=== PATIENT | female | born 1965 | race Caucasian/White ===

== ENCOUNTER 2020-06-08 19:42 | Emergency (ER) | payer BC, OTHER ==
[2020-06-08] MEDS ORDERED: NA CHLORIDE 0.9% 1,000 ML ONE ×2 (20:11→21:46)
[2020-06-08 20:56] LABS: Absolute Lymphocytes (CBC) 2.5 K/uL (0.7-4.9); Basophils % 0.8 % (0-1.3); Lymphocytes % 40.2 % (15.3-44.8); MPV 7.5 fL (7.6-11.3); RBC Red Blood Cell Count 3.89 M/uL (3.86-4.86)
[2020-06-08 21:11] LABS: Protime INR 0.87
[2020-06-08 21:12] LABS: ALT/SGPT 35 U/L (12-78); AST/SGOT 16 U/L (15-37); Albumin 4.6 g/dL (3.4-5.0); Alkaline Phosphatase 65 U/L (45-117); BUN Blood Urea Nitrogen 33 mg/dL (7-18); Bicarbonate 25 mmol/L (21-32); Bilirubin Direct 0.1 mg/dL (0-0.2); Bilirubin Total 0.5 mg/dL (0.2-1.0); Glucose Level 99 mg/dL (74-106); Potassium 3.7 mmol/L (3.5-5.1); Protein, Total 8.5 g/dL (6.4-8.2); Sodium Level 139 mmol/L (136-145)
[2020-06-08] MEDS ORDERED: THIAMINE 200 MG/2 ML INJ ONE (21:45)
[2020-06-08] MEDS ORDERED: MULTIVITAMINS 10 ML VIAL (INJ) IV ONE (21:46)
[2020-06-08] MEDS ORDERED: FOLIC ACID 5 MG/ML VIAL ONE (21:47)
--- NOTE | 2020-06-09 02:07 | ER ---
Nurse's Notes [facility] Name: Angelica Duarte Age: 55 yrs Sex: Female : 1965 Arrival Date: 06/08/2020 Time: 19:42 Bed 4 Private MD: Diagnosis: Alcohol abuse with intoxication, unspecified Presentation: 06/08 19:50 Chief complaint: Patient states: Drank a bottle of wine, mixed drink. Got in a argument ll1 with , went into room at 1915 ate took about 15 zolpidem, told her she wanted to . Coronavirus screen: Client denies travel out of the [place] in the last 14 days. At this time, the client does not indicate any symptoms associated with coronavirus-19. Ebola Screen: Patient denies travel to an Ebola-affected area in the 21 days before illness onset. Initial Sepsis Screen: Does the patient meet any 2 criteria? HR > 90 bpm. Risk Assessment: Do you want to hurt yourself or someone else? Patient reports desire/thoughts of hurting themselves or someone else. Provider notified. Onset of symptoms was June 08, 2020. 19:50 Method Of Arrival: Wheelchair ll1 19:50 Acuity: SCOTT 2 ll1 Historical: - Allergies: 19:53 general anesthia; ll1 - PMHx: 19:53 Hypertension; ll1 - PSHx: 19:53 Knee surgery; ll1 - Immunization history:: Adult Immunizations up to date. - Social history:: Smoking status: Patient denies any tobacco usage or history of. Patient uses alcohol, Patient/guardian denies using street drugs. Screenin:00 Abuse screen: Denies threats or abuse. Nutritional screening: No deficits noted. jb4 Tuberculosis screening: No symptoms or risk factors identified. Fall Risk None identified. Assessment: 20:00 General: Appears in no apparent distress. uncomfortable, Behavior is calm, cooperative, jb4 appropriate for age. Pain: Denies pain. Neuro: Level of Consciousness is awake, obeys commands, lethargic, Oriented to person, place, time, situation. Cardiovascular: Patient's skin is warm and dry. Respiratory: Airway is patent Respiratory effort is even, unlabored, Respiratory pattern is regular, symmetrical. GI: No signs and/or symptoms were reported involving the gastrointestinal system. : No signs and/or symptoms were reported regarding the genitourinary system. EENT: No signs and/or symptoms were reported regarding the EENT system. Derm: Skin is intact, Skin is pink, warm \T\ dry. Musculoskeletal: Circulation, motion, and sensation intact. Range of motion: intact in all extremities. 21:00 Reassessment: Patient and/or family updated on plan of care and expected duration. Pain jb4 level reassessed. Snoring respirations noted. Pt desat's to 84% on room air. Provider notified. PT placed on 2l NC per protocol. 21:12 Reassessment: spoke to Poison Control in [place] recommended care is symptomatic and bb supportive, with Ambien the concern is drowsiness compounded by alcohol ingestion monitor patient for airway control. Charcoal is contraindicated at this time due to the length of time since ingestion and the risk for aspiration. Give IV fluids and check the usual lab values. 22:00 Reassessment: Patient and/or family updated on plan of care and expected duration. Pain jb4 level reassessed. Pt no longer snoring, O2 increased to 98% on 2L NC. respirations are even and unlabored. Pt can be aroused with sternal rub. Remains Oriented x4 and lethargic. 23:00 Reassessment: Patient and/or family updated on plan of care and expected duration. Pain jb4 level reassessed. Pt remains lethargic. Is able to be aroused via sternal rub. Remains Oriented x4. remains at the bedside. 06/09 00:00 Reassessment: No changes from previously documented assessment. Patient and/or family jb4 updated on plan of care and expected duration. Pain level reassessed. Patient is alert, oriented x 3, equal unlabored respirations, skin warm/dry/pink. 01:00 Reassessment: Patient and/or family updated on plan of care and expected duration. Pain jb4 level reassessed. Pt is more easily aroused by verbal stimuli. Opens her eyes on command. Respirations are even and unlabored. No s/s of pain or distress noted. 02:30 Reassessment: Patient and/or family updated on plan of care and expected duration. Pain jb4 level reassessed. Patient is alert, oriented x 3, equal unlabored respirations, skin warm/dry/pink. Pt is now sitting up in bed A\T\O x4. No s/s of pain or distress noted. Pt reports feeling better. informed of d/c orders and need for to arrive to give ride home. 02:42 Reassessment: Pt's notified of D/c orders and need to come and pick her up. jb4 03:23 Reassessment: Patient and/or family updated on plan of care and expected duration. Pain jb4 level reassessed. Patient is alert, oriented x 3, equal unlabored respirations, skin warm/dry/pink. Pt and verbalized understanding of d/c and follow up instructions. Pt assisted to vehicle via wheelchair. Vital Signs: 06/08 19:50 BP 96 / 66; Pulse 106; Resp 18; Temp 97.8; Pulse Ox 96% ; Pain 0/10; ll1 21:00 BP 98 / 49; Pulse 84; Resp 18; Pulse Ox 97% on R/A; oe 22:00 BP 103 / 70; Pulse 85; Resp 18; Pulse Ox 100% on R/A; oe 23:00 BP 99 / 63; Pulse 89; Resp 18; Pulse Ox 99% on R/A; oe 06/09 00:00 BP 112 / 55; Pulse 96; Resp 17; Pulse Ox 98% on R/A; oe 01:00 BP 104 / 68; Pulse 91; Resp 18; Pulse Ox 100% on R/A; oe 02:00 BP 113 / 77; Pulse 95; Resp 16; Pulse Ox 100% on R/A; jb4 03:00 BP 121 / 98; Pulse 106; Resp 16; Pulse Ox 97% on R/A; jb4 ED Course: 06/08 19:42 Patient arrived in ED. cl3 19:52 Triage completed. ll1 19:53 Arm band placed on Patient notified of wait time. ll1 19:56 Miguelina Forman [facility]C [facility] kb 19:56 David Kolb MD is Attending Physician. kb 20:00 Lew Albarran, RN is Primary Nurse. jb4 20:00 Patient has correct armband on for positive identification. Bed in low position. Call jb4 light in reach. Side rails up X 1. Pulse ox on. NIBP on. 06/09 03:30 No provider procedures requiring assistance completed. IV discontinued, intact, jb4 bleeding controlled, No redness/swelling at site. Pressure dressing applied. Administered Medications: 06/08 20:20 Drug: NS 0.9% 1000 ml Route: IV; Rate: 1000 ml; Site: right wrist; jb4 21:47 Drug: Banana Bag - (NS 0.9% 1000 ml, foLIC Acid 1 mg, Thiamine 100 mg, Multivitamin 1 jb4 amp) Route: IV; Rate: calculated rate; Site: right wrist; Outcome: 06/09 02:06 Discharge ordered by MD. durand 03:30 Discharged to home via wheelchair, with family. jb4 03:30 Condition: stable 03:30 Discharge instructions given to patient, family, Instructed on discharge instructions, follow up and referral plans. Demonstrated understanding of instructions, follow-up care. 03:33 Patient left the ED. jb4 Signatures: Miguelina Forman, FENCE SETTER-C FENCE SETTER-CkRakel Rodarte RN RN bb Lew Albarran RN RN jb4 Chung Lovelace Charde cl3 Cara Will RN RN ll1 Corrections: (The following items were deleted from the chart) 03:28 02:42 Reassessment: Pt's notified of D/c orders and need to come and pick her jb4 up. jb4
--- NOTE | 2020-06-09 02:07 | EDPHYS ---
Physician Documentation [facility] Name: Angelica Duarte Age: 55 yrs Sex: Female : 1965 Arrival Date: 06/08/2020 Time: 19:42 Bed 4 Private MD: ED Physician David Kolb HPI: 06/08 21:10 This 55 yrs old Female presents to ER via Wheelchair with complaints of kb Possible Overdose. 21:10 The patient presents to the emergency department after a known overdose, that was kb intentional. Context: Method: the patient has a confirmed or suspected ingestion, ambien, Time: at 19:00, Extent: the strength of the pills/capsules is 12.5 mg(s), the patient had a total ingestion of approximately 187.5 mg(s), the OD/poisoning occurred at at home, and was witnessed no one, Psychiatric history: none, Previous OD/poisoning history: none. Associated signs and symptoms: The patient has no apparent associated signs or symptoms. Severity of symptoms: At their worst the symptoms were moderate in the emergency department the symptoms are unchanged. The patient has not experienced similar symptoms in the past. The patient has not recently seen a physician. Pt states "I'm fine and can go home." at bedside explains that pt drank a bottle of wine, 3oz of rum and then went into the bedroom and took 15-16 of her 12.5mg ambien. States she told him she wanted to kill herself. Pt reports she was not trying to harm herself, that she was mad at her and wanted to get some sleep. Pt reports she has been taking ambien for many years. Pt appears intoxicated. Resp even and unlabored. Pt is awake, alert and oriented. Pt denies homicidal or suicidal ideations. . Historical: - Allergies: 19:53 general anesthia; ll1 - PMHx: 19:53 Hypertension; ll1 - PSHx: 19:53 Knee surgery; ll1 - Immunization history:: Adult Immunizations up to date. - Social history:: Smoking status: Patient denies any tobacco usage or history of. Patient uses alcohol, Patient/guardian denies using street drugs. ROS: 21:14 Constitutional: Negative for fever, chills, and weight loss, Cardiovascular: Negative kb for chest pain, palpitations, and edema, Respiratory: Negative for shortness of breath, cough, wheezing, and pleuritic chest pain, Abdomen/GI: Negative for abdominal pain, nausea, vomiting, diarrhea, and constipation, Back: Negative for injury and pain, : Negative for injury, bleeding, discharge, and swelling, MS/Extremity: Negative for injury and deformity, Skin: Negative for injury, rash, and discoloration, Neuro: Negative for headache, weakness, numbness, tingling, and seizure. 21:14 Psych: Positive for overdose of ambien, intoxication. Exam: 21:14 Constitutional: This is a well developed, well nourished patient who is awake, alert, kb and in no acute distress. Head/Face: Normocephalic, atraumatic. Chest/axilla: Normal chest wall appearance and motion. Nontender with no deformity. No lesions are appreciated. Cardiovascular: Regular rate and rhythm with a normal S1 and S2. No gallops, murmurs, or rubs. Normal PMI, no JVD. No pulse deficits. Respiratory: Lungs have equal breath sounds bilaterally, clear to auscultation and percussion. No rales, rhonchi or wheezes noted. No increased work of breathing, no retractions or nasal flaring. Abdomen/GI: Soft, non-tender, with normal bowel sounds. No distension or tympany. No guarding or rebound. No evidence of tenderness throughout. Skin: Warm, dry with normal turgor. Normal color with no rashes, no lesions, and no evidence of cellulitis. MS/ Extremity: Pulses equal, no cyanosis. Neurovascular intact. Full, normal range of motion. Neuro: Awake and alert, GCS 15, oriented to person, place, time, and situation. Cranial nerves II-XII grossly intact. Motor strength 5/5 in all extremities. Sensory grossly intact. Cerebellar exam normal. Normal gait. 21:14 Neuro: pt appears intoxicated. 21:14 Psych: Behavior/mood is cooperative, intoxicated. Affect is calm, Oriented to person, place, time, Patient has no thoughts/intents to harm self or others. Judgement / Insight is normal. Memory is normal. Delusions/hallucinations are not present. pt denies homicidal and suicidal ideations to me. Vital Signs: 19:50 BP 96 / 66; Pulse 106; Resp 18; Temp 97.8; Pulse Ox 96% ; Pain 0/10; ll1 21:00 BP 98 / 49; Pulse 84; Resp 18; Pulse Ox 97% on R/A; oe 22:00 BP 103 / 70; Pulse 85; Resp 18; Pulse Ox 100% on R/A; oe 23:00 BP 99 / 63; Pulse 89; Resp 18; Pulse Ox 99% on R/A; oe 06/09 00:00 BP 112 / 55; Pulse 96; Resp 17; Pulse Ox 98% on R/A; oe 01:00 BP 104 / 68; Pulse 91; Resp 18; Pulse Ox 100% on R/A; oe 02:00 BP 113 / 77; Pulse 95; Resp 16; Pulse Ox 100% on R/A; jb4 03:00 BP 121 / 98; Pulse 106; Resp 16; Pulse Ox 97% on R/A; jb4 MDM: 06/08 19:57 Patient medically screened. kb 20:52 Data reviewed: vital signs, nurses notes. Data interpreted: Pulse oximetry: on room air kb is 96 %. Interpretation: normal. 22:47 ED course: Fabricio Duarte () . kb 06/09 02:05 Counseling: I had a detailed discussion with the patient and/or guardian regarding: the kb historical points, exam findings, and any diagnostic results supporting the discharge/admit diagnosis, lab results, the need for outpatient follow up, a family practitioner, to return to the emergency department if symptoms worsen or persist or if there are any questions or concerns that arise at home. ED course: Pt's to pear picker pt. Pt still denies suicidal or homicidal ideations. States she was just trying to get some rest. . 06/08 19:57 Order name: Acetaminophen 06/08 19:57 Order name: Basic Metabolic Panel 06/08 19:57 Order name: CBC with Diff 06/08 19:57 Order name: ETOH Level 06/08 19:57 Order name: Hepatic Function 06/08 19:57 Order name: PT-INR 06/08 19:57 Order name: Ptt, Activated 06/08 19:57 Order name: Salicylate 06/08 19:57 Order name: Urine Drug Screen 06/08 21:02 Order name: CBC with Automated Diff; Complete Time: 21:05 EDMS 06/08 21:12 Order name: Salicylates Level; Complete Time: 21:16 EDMS 06/08 21:12 Order name: Protime (+INR); Complete Time: 21:16 EDMS 06/08 21:12 Order name: PTT, Activated Partial Thromb; Complete Time: 21:16 EDMS 06/08 21:20 Order name: Basic Metabolic Panel; Complete Time: 21:22 EDMS 06/08 19:57 Order name: EKG; Complete Time: 19:58 kb 06/08 19:57 Order name: EKG - Nurse/Tech; Complete Time: 20:24 kb 06/08 19:57 Order name: IV Saline Lock; Complete Time: 20:24 kb 06/08 19:57 Order name: Labs collected and sent; Complete Time: 20:24 kb 06/08 20:02 Order name: Misc. Order: consult poison control for recommendation; Complete Time: 21:16kb 06/08 21:20 Order name: Liver (Hepatic) Function; Complete Time: 21:22 EDMS 06/08 21:20 Order name: Acetaminophen Level; Complete Time: 21:22 EDMS 06/08 21:20 Order name: Alcohol Serum/Plasma; Complete Time: 21:22 EDMS 06/09 01:11 Order name: ETOH Level 06/09 01:56 Order name: Alcohol Serum/Plasma; Complete Time: 02:04 EDMS Administered Medications: 06/08 20:20 Drug: NS 0.9% 1000 ml Route: IV; Rate: 1000 ml; Site: right wrist; jb4 21:47 Drug: Banana Bag - (NS 0.9% 1000 ml, foLIC Acid 1 mg, Thiamine 100 mg, Multivitamin 1 jb4 amp) Route: IV; Rate: calculated rate; Site: right wrist; Disposition: 06/09 04:35 Co-signature as Attending Physician, David Kolb MD. [email or web address] Disposition: 06/09/20 02:06 Discharged to Home. Impression: Alcohol abuse with intoxication, unspecified. - Condition is Stable. - Discharge Instructions: Alcohol Use Disorder, Alcohol Intoxication, [id number]. - Medication Reconciliation Form, Thank You Letter, Antibiotic Education, Prescription Opioid Use, SBAR form form. - Follow up: Emergency Department; When: As needed; Reason: Worsening of condition. Follow up: Private Physician; When: 2 - 3 days; Reason: Recheck today's complaints, Continuance of care, Re-evaluation by your physician. Signatures: Dispatcher [employer] Miguelina Paredes, YOU FLOWER-Lew Underwood, RN RN jb4 Cara Will RN RN ll1 David Kolb MD MD [email or web address] Corrections: (The following items were deleted from the chart) 03:33 02:06 06/09/2020 02:06 Discharged to Home. Impression: Alcohol abuse with intoxication, jb4 unspecified. Condition is Stable. Forms are SBAR form, Medication Reconciliation Form, Thank You Letter, Antibiotic Education, Prescription Opioid Use. Follow up: Emergency Department; When: As needed; Reason: Worsening of condition. Follow up: Private Physician; When: 2 - 3 days; Reason: Recheck today's complaints, Continuance of care, Re-evaluation by your physician. kb
[2020-06-09 03:41] VITALS: TEMP 97.8
[2020-06-09 03:50] VITALS: BP 121/98; O2SAT 97
--- NOTE | 2020-06-09 15:18 | EKG ---
Test Date: 2020-06-08 Test Time: 20:34:48 Social Media Sr Strategy Manager: ZULAY MEASUREMENT RESULTS: Intervals: Rate: 87 TN: 162 QRSD: 86 QT: 384 QTc: 462 [place]: P: 52 TN: 162 QRS: 5 T: 13 INTERPRETIVE STATEMENTS: Normal sinus rhythm Moderate voltage criteria for LVH, may be normal variant Inferior infarct, age undetermined Abnormal ECG No previous ECG available for comparison Electronically Signed On 06-09-20 15:16:59 CDT by Lux Christian
== END 2020-06-09 03:33 | disposition home or self-care (01) ==
LOC: ER 19:42
DX: F10.129 Alcohol abuse with intoxication, unspecified (principal); I10 Essential (primary) hypertension; Z88.4 Allergy status to anesthetic agent
CPT/HCPCS: 93005; 85025; 80048; 36415; 80320 ×2; 80329 ×2; 85610; 80076; 85730; 96374; 99283; J3411; J7030 ×2